=== PATIENT | female | born 1970 | race African-American/Black ===

== ENCOUNTER 2017-01-10 20:34 | Emergency (ER) | payer MEDICAID ==
[~2017-01-10] VITALS: Ht 162.6 cm; Wt 50.9 kg
[2017-01-10] MEDS ORDERED: PREDNISONE 20MG TABLET PO STA (21:19)
[2017-01-10] MEDS ORDERED: LORAZEPAM 1MG TABLET PO ONE (21:30)
[2017-01-10 21:50] LABS: BASOPHILS % 1.2 % (0.0-2.0); DIFFERENTIAL COMMENT 0; EOSINOPHILS % 8.9 % (0.0-5.0); HEMATOCRIT. 31.5 % (36.0-48.0); HEMOGLOBIN. 9.8 g/dL (12.0-16.0); LYMPHOCYTES % 16.9 % (20.0-50.0); MEAN CORPUSCULAR HEMOGLOBIN 21.8 pg (28.0-32.0); MEAN CORPUSCULAR HGB CONC 31.1 g/dL (31.0-37.0); MEAN CORPUSCULAR VOLUME 70.2 fL (81.0-99.0); MEAN PLATELET VOLUME 7.4 fl (7.4-10.4); MONOCYTES % 8.4 % (2.0-8.0); NEUTROPHILS % 64.6 % (40.0-76.0); PLATELET 398 x1000/uL (130-400); RED BLOOD CELL COUNT 4.49 mill/uL (4.2-5.4); RED CELL DISTRIBUTION WIDTH 21.1 % (11.6-14.6)
[2017-01-10 21:54] LABS: CHLORIDE 109 mEq/L (98-107); INDEX HEMOLYSI 1 (1-3); INDEX ICTERIC 1 (1-4); INDEX LIPEMIC 1 (1-3)
[2017-01-10 21:56] LABS: PROTHROMBIN TIME 10.2 sec
[2017-01-10 22:03] LABS: ALANINE AMINOTRANSFERASE 22 IU/L (13-61); ALBUMIN 3.4 g/dL (3.4-5.0); ANION GAP 10; CALCIUM 8.9 mg/dL (8.5-10.1); CARBON DIOXIDE 26 mEq/L (21-32); UREA NITROGEN BLOOD 12 mg/dL (7-21); eGFR > 60 mL/min (>60)
[2017-01-10] MEDS: ALBUTEROL (0.083%) 2.5MG/3ML NEB HHN SCH (22:10)
[2017-01-10 23:55] VITALS: BP 142/92
== END 2017-01-11 00:33 | disposition home or self-care (01) ==
LOC: ER 20:35
DX: J45.901 Unspecified asthma with (acute) exacerbation (principal); F41.9 Anxiety disorder, unspecified; F17.200 Nicotine dependence, unspecified, uncomplicated; Z98.890 Other specified postprocedural states
CPT/HCPCS: 36415; 71010; 80053; 81025; 85025; 85610; 99285; J7512; J7611

== ENCOUNTER 2019-08-05 18:40 | Emergency (ER) | payer MEDICAID ==
[~2019-08-05] VITALS: Ht 165.1 cm; Wt 55.0 kg
[2019-08-05] MEDS ORDERED: METHYLPREDNISOLONE SOD SUCC 125 MG/2 ML VIAL IV STA (18:59)
[2019-08-05] MEDS ORDERED: IPRATROPIUM BROMIDE (0.02%) 0.5MG/2.5ML NEB HHN STA (18:59)
[2019-08-05] MEDS ORDERED: ALBUTEROL (0.083%) 2.5MG/3ML NEB HHN STA (18:59)
[2019-08-05 19:36] LABS: BASOPHILS % 0.7 % (0.0-2.0); EOSINOPHILS % 6.1 % (0.0-5.0); HEMATOCRIT. 40.2 % (36.0-48.0); HEMOGLOBIN. 12.5 g/dL (12.0-16.0); LYMPHOCYTES % 16.6 % (20.0-50.0); MEAN CORPUSCULAR HEMOGLOBIN 23.2 pg (28.0-32.0); MEAN CORPUSCULAR VOLUME 74.5 fL (81.0-99.0); MEAN PLATELET VOLUME 8.5 fl (7.4-10.4); MONOCYTES % 6.8 % (2.0-8.0); NEUTROPHILS % 69.8 % (40.0-76.0); PLATELET 546 x1000/uL (130-400); RED BLOOD CELL COUNT 5.39 mill/uL (4.2-5.4); RED CELL DISTRIBUTION WIDTH 32.2 % (11.6-14.6)
[2019-08-05 19:37] LABS: CHLORIDE 109 mEq/L (98-107)
[2019-08-05 20:05] LABS: PLATELET ESTIMATE MARKEDLY INCREASED
[2019-08-05] MEDS ORDERED: HYDROCODONE/ACETAMINOPHEN 5/325MG TABLET PO ONE (21:30)
[2019-08-05 21:53] VITALS: BP 176/100
== END 2019-08-05 22:06 | disposition home or self-care (01) ==
LOC: ER 18:40
DX: J45.901 Unspecified asthma with (acute) exacerbation (principal); D47.3 Essential (hemorrhagic) thrombocythemia; J06.9 Acute upper respiratory infection, unspecified
CPT/HCPCS: 36415; 71045; 80053; 83880; 84484; 85025; 93005; 94644; 96374; 99285; J2930; J7611; Z7610

== ENCOUNTER 2020-07-06 19:03 | Emergency (ER) | payer MEDICAID ==
[~2020-07-06] VITALS: Ht 162.6 cm; Wt 56.0 kg
[2020-07-06] MEDS ORDERED: IPRATROPIUM/ALBUTEROL 0.5-3(2.5)MG/3ML NEB HHN ONE (19:30)
[2020-07-06 20:01] VITALS: BP 181/105
== END 2020-07-06 20:40 | disposition home or self-care (01) ==
LOC: ER 19:03
DX: J45.901 Unspecified asthma with (acute) exacerbation (principal); R06.02 Shortness of breath
CPT/HCPCS: 71045; 94640; 99283; Z7610

== ENCOUNTER 2021-02-04 19:34 | Emergency (ER) | payer MEDICAID ==
[~2021-02-04] VITALS: Ht 167.6 cm; Wt 62.0 kg
[2021-02-04 19:42] VITALS: BP 170/101
[2021-02-04] MEDS ORDERED: IPRATROPIUM BROMIDE (0.02%) 0.5MG/2.5ML NEB HHN STA (22:55)
[2021-02-04] MEDS ORDERED: PREDNISONE 20MG TABLET PO STA (22:55)
[2021-02-04] MEDS ORDERED: ALBUTEROL (0.083%) 2.5MG/3ML NEB HHN STA (22:55)
[2021-02-05 00:07] LABS: BASOPHILS % 1.7 % (0.0-2.0); EOSINOPHILS % 11.3 % (0.0-5.0); HEMATOCRIT. 32.6 % (36.0-48.0); HEMOGLOBIN. 10.6 g/dL (12.0-16.0); LYMPHOCYTES % 21.3 % (20.0-50.0); MEAN CORPUSCULAR HEMOGLOBIN 23.8 pg (28.0-32.0); MEAN PLATELET VOLUME 7.8 fl (7.4-10.4); NEUTROPHILS % 58.7 % (40.0-76.0); PLATELET 530 x1000/uL (130-400); RED BLOOD CELL COUNT 4.46 mill/uL (4.2-5.4)
[2021-02-05 00:14] LABS: CHLORIDE 110 mEq/L (98-107)
[2021-02-05] MEDS ORDERED: PRED10TA MT (02:12)
[2021-02-05] MEDS ORDERED: ALBU6.7H9 INH (02:12)
[2021-02-05 02:20] LABS: PLATELET ESTIMATE INCREASED
== END 2021-02-05 02:34 | disposition home or self-care (01) ==
LOC: ER 19:34
DX: J45.901 Unspecified asthma with (acute) exacerbation (principal); I10 Essential (primary) hypertension
CPT/HCPCS: 36415; 80053; 85025; 86850; 86900; 86901; 93005; 94640; 99284; J7512; Z7610

== ENCOUNTER 2021-03-10 16:25 | Emergency (ER) | payer MEDICAID ==
[~2021-03-10] VITALS: Ht 165.1 cm; Wt 63.0 kg
[~2021-03-10 16:25] MED LIST: ALBU6.7H9 INH; PRED10TA MT
[2021-03-10] MEDS ORDERED: METHYLPREDNISOLONE SOD SUCC 40 MG/ML VIAL IV ONE (17:00)
[2021-03-10] MEDS ORDERED: ALBUTEROL (0.083%) 2.5MG/3ML NEB HHN ONE (17:00)
[2021-03-10] MEDS ORDERED: MAGNESIUM 2 G PREMIX 50 ML IV ONE (17:45)
[2021-03-10] MEDS ORDERED: ALBU18HF2 IH (17:56)
[2021-03-10] MEDS ORDERED: P20 MT (17:56)
[2021-03-10 20:19] VITALS: BP 149/89
== END 2021-03-10 20:38 | disposition home or self-care (01) ==
LOC: ER 16:25
DX: J45.901 Unspecified asthma with (acute) exacerbation (principal); I10 Essential (primary) hypertension; Z79.899 Other long term (current) drug therapy
CPT/HCPCS: 71045; 96365; 96375; 99284; J2920; J3475; Z7610